=== PATIENT | male | born 1970 | race Caucasian/White ===

== ENCOUNTER 2017-10-28 18:08 | Observation (INO) | payer OTHER ==
--- NOTE | 2017-10-28 18:16 | CPEKG ---
Heart Rate: 91 RR Interval: 659 P-R Interval: 144 QRSD Interval: 104 QT Interval: 352 QTC Interval: 434 P Boyce: 53 QRS Boyce: 74 T Wave Boyce: 113 EKG Severity - ABNORMAL ECG - EKG Impression: SINUS RHYTHM EKG Impression: PROBABLE INFERIOR INFARCT, AGE INDETERMINATE EKG Impression: LATERAL LEADS ARE ALSO INVOLVED Electronically Signed By: Starr Davis 29-Oct-2017 22:43:22
--- NOTE | 2017-10-28 18:21 | EDPHY ---
HPI/HX/ROS/PE/MDM Narrative: CHIEF COMPLAINT: Chest pain HISTORY OF PRESENT ILLNESS: The patient is a 46 y/o male with a history of a pacemaker and CABG x 2 arriving via EMS, complaining of midsternal chest pain, 45 minutes ago. He has had a total of 14 SD's, which resulted in a CABG and pacemaker/defibrillator. After the CABG he had CHF. He had a cardiac catheterization in 05/2017. 9 days after the catheterization he was seen in the ED at [facility] after developing chest pain, but sent home. Today he did not feel well, when his chest pain began he felt nauseous, lightheaded, and began to have sweats. He drove to a [employer] as he did not have any Nitroglycerin, but the pain was to great so he called 911. While en route to the ED, EMS gave him 324mg PO Aspirin and 1 nitroglycerin. After receiving the nitroglycerin he became dizzy. The pain today was an 8/10 at its worse and is currently a 5/10. The pain feels more cardiac as opposed to GERD. Takes 325mg Aspirin daily, which he took today. Denies taking Nitroglycerin for 3-4 months. Denies chest pain with inspiration. Followed by Dr. Garcia, plate slitter and inspector, at [facility]. No fever, chills, shortness of breath, palpitations, vomiting, diarrhea, urinary complaints, headache. REVIEW OF SYSTEMS: Aside from elements discussed in the HPI, a comprehensive 10-point review of systems was reviewed and is negative. PAST MEDICAL HISTORY: SD x 14, CABG x 2, pacemaker/AICD, hypercholesteremia, hypertension, epilepsy, GERD SOCIAL HISTORY: Works for [employer], lives in [place] VITAL SIGNS: Reviewed by me GENERAL: Well-developed, well-nourished, resting comfortably in no respiratory distress. HEENT: Atraumatic. Eyes: No icterus, no injection. Mouth: moist mucous membranes. No erythema or lesions. Neck: supple with no adenopathy. LUNGS: Clear to auscultation bilaterally, no wheezes, rhonchi or rales. CARDIAC: Regular rate and rhythm, no rubs, murmurs or gallops. ABDOMEN: Soft, nontender, nondistended, bowel sounds normal. BACK: No CVA tenderness. EXTREMITIES: No trauma. No edema. Range of motion is normal throughout. NEURO: Alert and oriented, grossly nonfocal. SKIN: Warm and dry, no rash. PSYCHIATRIC: Normal mentation, no agitation. Portions of this note were transcribed by a medical claims examiner. I personally performed a history, physical exam, medical decision making, and confirmed accuracy of information the transcribed note. ED Course: The patient is a 46 y/o male with a history of a CABG x 2 and pacemaker arriving via EMS, presenting with midsternal chest pain, onset 1 hour ago. Was administered 324mg PO Aspirin and 1 nitroglycerin while en route to the ED. His physical exam is normal, chest pain is currently a 5/10. Labs, EKG, and chest x- ray ordered. 4mg IV Morphine administered. 1813: 12-LEAD EKG: Please see the full report in [employer] [facility]. My interpretation: Sinus rhythm with a rate of 91, old inferior infarct, hint of lateral ST depression. 1852: Chest x-ray was obtained. I viewed the images myself on the PACS system. Radiologist reading pending. 1905: Spoke with Dr. Coy, radiologist, regarding this patient's x-ray. There are no acute findings. 1920: Reassessed patient and discussed imaging and laboratory findings. He is still having a mild amount of chest pain. 4mg IV Morphine and Nitroglycerin paste administered. Patient will need to be admitted to the PCU for observation ; he is comfortable with this plan. 0: Consulted with hospitalist service, Dr. Bhakta accepts admission of this patient. 1948: Consulted with Dr. Bee, plate slitter and inspector, regarding this patient. He agrees to follow this patient during his admission. MDM: diff dx for patients chest pain considered including but not limited to ACS, acute SD, gastroentestinal causes, pleurisy, GERD, gallstone disease, musculoskeletal disease. - Data Points Imaging Results: Imaging Impressions Chest X-Ray 10/28/17 18:26 Impression: 1. No acute thoracic abnormality. 2. Mild anterior wedging of multiple lower thoracic vertebrae. Imaging: Discussed imaging studies w/ inbound call center representative Radiologist, I viewed and interpreted images myself Laboratory Results: Laboratory Results 10/28/17 18:15 10/28/17 18:15 10/28/17 10/28/17 18:15 18:15 WBC 10.61 10^3/uL H 10^3/uL (3.80-9.50) RBC 5.73 10^6/uL 10^6/uL (4.40-6.38) Hgb 17.2 g/dL g/dL (13.7-17.5) Hct 49.3 % % (40.0-51.0) MCV 86.0 fL fL (81.5-99.8) MCH 30.0 pg pg (27.9-34.1) MCHC 34.9 g/dL g/dL (32.4-36.7) RDW 13.8 % % (11.5-15.2) Plt Count 250 10^3/uL 10^3/uL (150-400) MPV 9.6 fL fL (8.7-11.7) Neut % (Auto) 67.0 % % (39.3-74.2) Lymph % (Auto) 22.6 % % (15.0-45.0) Woods % (Auto) 8.3 % % (4.5-13.0) Eos % (Auto) 1.1 % % (0.6-7.6) Baso % (Auto) 0.6 % % (0.3-1.7) Nucleat RBC Rel Count 0.0 % % (0.0-0.2) Absolute Neuts (auto) 7.11 10^3/uL H 10^3/uL (1.70-6.50) Absolute Lymphs (auto) 2.40 10^3/uL 10^3/uL (1.00-3.00) Absolute Monos (auto) 0.88 10^3/uL H 10^3/uL (0.30-0.80) Absolute Eos (auto) 0.12 10^3/uL 10^3/uL (0.03-0.40) Absolute Basos (auto) 0.06 10^3/uL 10^3/uL (0.02-0.10) Absolute Nucleated RBC 0.00 10^3/uL 10^3/uL (0-0.01) Immature Gran % 0.4 % % (0.0-1.1) Immature Gran # 0.04 10^3/uL 10^3/uL (0.00-0.10) Sodium 139 mEq/L mEq/L (135-145) Potassium 4.5 mEq/L mEq/L (3.5-5.2) Chloride 106 mEq/L mEq/L (97-110) Carbon Dioxide 23 mEq/l mEq/l (22-31) Anion Gap 10 mEq/L mEq/L (8-16) BUN 15 mg/dL mg/dL (7-23) Creatinine 1.2 mg/dL mg/dL (0.7-1.3) Estimated GFR > 60 Glucose 107 mg/dL H mg/dL (70-100) Calcium 9.2 mg/dL mg/dL (8.5-10.4) Troponin I < 0.012 ng/mL ng/mL (0.000-0.034) Lipase 149 IU/L IU/L (23-300) Medications Given: Discontinued Medications Morphine Sulfate (Morphine) 4 mg IVP EDNOW ONE Stop: 10/28/17 18:25 Last Admin: 10/28/17 18:34 Dose: 4 mg Morphine Sulfate (Morphine) 4 mg IVP EDNOW ONE Stop: 10/28/17 19:33 Last Admin: 10/28/17 19:39 Dose: 4 mg Nitroglycerin (Nitro-Bid 2%) 1 inch TP EDNOW ONE Stop: 10/28/17 19:27 Last Admin: 10/28/17 19:39 Dose: 1 inch General Time Seen by Provider: 10/28/17 18:10 Initial Vital Signs: Initial Vital Signs Temperature (C) 36.8 C 10/28/17 18:21 Heart Rate 89 10/28/17 18:21 Respiratory Rate 17 10/28/17 18:21 Blood Pressure 105/68 10/28/17 18:21 O2 Sat (%) 96 10/28/17 18:21 O2 Delivery Mode Nasal Cannula O2 (L/minute) 2 Allergies/Adverse Reactions: No Known Allergies Allergy (Unverified 10/28/17 18:25) Home Medications: Medication Instructions Recorded Aspirin EC [Aspirin EC 81 mg (*)] 81 mg PO DAILY 10/28/17 Atorvastatin Calcium [Lipitor 80 80 mg PO HS 10/28/17 mg] Isosorbide Mononitrate [Isosorbide 60 mg PO DAILY 10/28/17 Mononitrate ER] LEVETIRACETAM [Keppra 750 mg] 750 mg PO BID 10/28/17 Lisinopril [Zestril 2.5 mg (*)] 2.5 mg PO DAILY 10/28/17 Metoprolol Succinate Xr [Toprol Xl 50 mg PO DAILY 10/28/17 50 mg (*)] Multivitamins [Multivitamin (*)] 1 each PO DAILY 10/28/17 Nicotine [Nicoderm Cq 21 mg (*)] 21 mg TD DAILY 10/28/17 Ranolazine [Ranexa] 1,000 mg PO BID 10/28/17 Rivaroxaban [Xarelto] 20 mg PO DAILY@18 10/28/17 Pantoprazole Sodium [Protonix 40mg 40 mg PO BID #60 tab 10/30/17 (*)] Departure - Departure Disposition: [facility] In[facility] Acute Clinical Impression: Mid sternal chest pain Chest pain Qualifiers: Chest pain type: other chest pain Qualified Code(s): R07.89 - Other chest pain Condition: Fair Report Scribed for: Starr Davis Report Scribed by: Jessenia Swift Date of Report: 10/28/17 Time of Report: 18:21
[2017-10-28 18:32] LABS: PLATELET COUNT 250 10^3/uL (150-400)
[2017-10-28] MEDS ORDERED: NITROGLYCERIN 2% 1 GM PACKET TP ONE (19:26)
[2017-10-28] MEDS ORDERED: ONDANSETRON 4 MG/2 ML VIAL IVP PRN (19:30)
[2017-10-28] MEDS ORDERED: ONDANSETRON DISINTEGRATING 4 MG TAB PO PRN (19:30)
--- NOTE | 2017-10-28 21:20 | GHP ---
[f rep st] HISTORY AND PHYSICAL DATE OF ADMISSION: 10/28/2017 CHIEF COMPLAINT: Chest pain. HISTORY OF PRESENT ILLNESS: A 46-year-old male with a history of coronary artery disease, status pos t a 2-vessel CABG approximately 7 years ago, who presents with sudden onset of substernal burning jarda st pain that began approximately an hour prior to his arrival to the emergency department. Patient r eports being in his normal state of health in the a week or two preceding his presentation, does note a recent knee injury and some decreased activity in the 48 hours prior to presentation. 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 Patient has had extensive experience with ref lux and describes that this sensation substernally is not similar to reflux he has had in the past, w as associated with shortness of breath with diaphoresis. Patient pressed the SOS button on his car a nd EMS came to his location. He was treated with nitroglycerin in the emergency transport vehicle, w hich made him exceedingly dizzy and nauseated. Upon arrival to the ED, he reports that the pain has improved. His dizziness is improving, as well as his shortness of breath. Patient denies any activi ty limiting chest pain or shortness of breath preceding this. Denies dyspnea on exertion, orthopnea, or PND. Denies lower extremity edema. Reports he has had an episode of pericarditis since his CABG surgery. His last evaluation of his coronary anatomy was in May or June 2017. He underwen t cardiac catheterization, which showed stable non-intervenable multivessel disease. PAST MEDICAL HISTORY: 1. Coronary artery disease, status post CABG 2-vessel approximately 7 years ago. 2. History of ventricular tachycardia, now with permanent pacemaker AICD. 3. Hyperlipidemia. 4. Hypertension. 5. History of epilepsy. 6. Reflux. 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 Works for [employer]. Smoked for 30 years. Quit for 7 and started smoking again recently. Drinks occasional alcohol. Den ies illicit drugs or marijuana. FAMILY HISTORY: Negative for heart disease. REVIEW OF SYSTEMS: A 10-point review of systems is negative with the exception of that reported in t he HPI. PHYSICAL EXAMINATION: VITAL SIGNS: Blood pressure 130/87, heart rate 86, respiratory rate 12, satur ating 96% on room air, 36.8. GENERAL: Pleasant 46-year-old male with a history of coronary disease, presenting with complaints of chest pain. HEENT: Moist mucous membranes. Eye exam is negative for any icterus. CARDIAC: Regular rate and rhythm. A systolic murmur is appreciated. PULMONARY: Vini ar to auscultation bilaterally. GASTROINTESTINAL: Positive bowel sounds. Abdomen soft and nontende r. MUSCULOSKELETAL: Negative for any lower extremity edema. SKIN: Negative for any rashes. NEURO LOGIC: Alert and oriented x3. PSYCHIATRIC: He is pleasant and cooperative on interview and examina tion. DATA: White count 10.6, hematocrit 49.3, platelets 250. Troponin less than 0.012. Sodium 139, crea tinine 1.2. EKG, which I personally reviewed and interpreted, shows a sinus rhythm, normal axis, nor mal intervals, with Q-waves in leads II, III, aVF, with nonspecific ST-T flattening in the lateral pr ecordial leads. Chest x-ray, which I personally reviewed and interpreted, shows no acute infiltrates or edema. ASSESSMENT AND PLAN: This is a 46-year-old male with extensive coronary artery disease, presenting w ith chest pain. 1. Acute chest pain. Patient's troponin is negative with inferior Q-waves and nonspecific lateral c hanges on EKG. Agree with treating with either nitroglycerin paste or nitroglycerin drip to get the patient pain-free. Will cycle serial troponins, EKGs. Have recommended Cardiology be consulted this evening as the patient is certainly high risk and the likely study that he will require is cardiac c atheterization. Will make the patient cardiac diet and n.p.o. after midnight and await additional re commendations from Cardiology. Patient is currently anticoagulated on Xarelto, as well as aspirin an d is chronically using long-acting nitrates as well as Ranexa. Will continue these medications once reconciled. 2. Coronary artery disease, extensive history with recent cardiac catheterization. We should attemp t to get those records. Will continue patient's aspirin, WYATT inhibitor, beta-prema, statin, and aw ait additional Cardiology recommendations. Again, making the patient n.p.o. after midnight in antici pation of possible cardiac catheterization. 3. Hypertension. Patient's blood pressures apparently were quite elevated in transport. They have normalized after his workup in the emergency department. Will continue his home medications. 4. Hyperlipidemia. Will continue his statin therapy. 5. Epilepsy. Will continue his Keppra dosing. 6. Prophylaxis. He is on Xarelto. 7. Diet. Cardiac, then n.p.o. DISPOSITION: I expect less than 2 midnights if the patient rules out overnight and has negative card iac imaging. I have discussed the case with the emergency room physician. They will consult Cardiol taty, and the patient will be admitted to the PCU for monitoring and care. /[id number]/MODL
[2017-10-29] MEDS: ATORVASTATIN CALCIUM 40 MG TAB PO SCH ×2 (00:13→20:16)
[2017-10-29] MEDS: RANOLAZINE 500 MG TAB.ER PO SCH ×3 (00:13→20:16)
[2017-10-29] MEDS: levETIRAcetam 250 MG TAB PO SCH ×3 (00:14→20:16)
[2017-10-29] MEDS: ACETAMN/DIPHENHYDRAMINE 500/25MG TAB PO PRN ×2 (00:17→22:28)
[2017-10-29] MEDS ORDERED: NITROGLYCERIN/DEXTROSE 250 ML IV SCH (01:00)
[2017-10-29] MEDS: ASPIRIN EC 81 MG TAB PO SCH (10:19)
[2017-10-29] MEDS: LISINOPRIL 2.5 MG TAB PO SCH (10:19)
[2017-10-29] MEDS: NICOTINE 21 MG/24 HR PATCH TD SCH (10:19)
[2017-10-29] MEDS: METOPROLOL SUCCINATE XR 50 MG TAB PO SCH (10:19)
[2017-10-29] MEDS: ACETAMINOPHEN 325 MG TAB PO PRN ×2 (10:19→22:28)
[2017-10-29] MEDS: MULTIVITAMINS 1 EACH TAB PO SCH (10:19)
[2017-10-29] MEDS: ISOSORBIDE MONONITRATE 30 MG TAB.SR PO SCH (10:19)
--- NOTE | 2017-10-29 13:32 | GCON ---
[f rep st] CONSULTATION DATE OF CONSULTATION: 10/29/2017 CHIEF COMPLAINT: We have been asked by Dr. Bhakta to evaluate the patient with a chief complaint of chest pain. HISTORY OF PRESENT ILLNESS: The patient is a 46-year-old gentleman, with known coronary artery disea se, who presents with a chief complaint of chest pain. Patient was in his usual state of health unti l the day of admission, when he began to experience chest pain. The chest pain is described as a bur ashlee sensation in the center of his chest without radiation. The chest pain was associated with shor tness of breath but not nausea, vomiting, or diaphoresis. When the chest discomfort did not resolve, patient became quite concerned and called EMS. When EMS arrived, they gave him nitroglycerin. This resulted in him feeling lightheaded, dizzy, and nauseous. His symptoms gradually resolved and, by t he time he arrived in the emergency department, he was mostly symptom free. We were consulted to magdaleno wren in the further management of this patient. Patient does have a previous history of coronary artery disease and is status post bypass grafting surgery x2 approximately 7 years previously. His previou s anginal symptoms were described as a pain in the center of the chest, associated with bilateral arm heaviness. His current symptomatology is not like his previous anginal-type symptoms. No history o f orthopnea or PND. Patient does report a recent knee injury at work but has otherwise been well. PAST MEDICAL HISTORY: 1. Coronary artery disease. 2. History of ventricular tachycardia status post ICD. 3. Hyperlipidemia. 4. Hypertension. 5. Gastroesophageal reflux disease. 6. History of epilepsy. MEDICATIONS: Please see medicine reconciliation form. 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 He does not smoke. He denies problems with a lcohol. FAMILY HISTORY: Negative for early onset of coronary artery disease. REVIEW OF SYSTEMS: Ten-point review of systems is negative, except as noted in HPI. PHYSICAL EXAMINATION: GENERAL: Patient is resting comfortably in bed at this time. He does not naz ear to be in acute distress. VITALS: Temperature is afebrile. Pulse is 83. Blood pressure 100/51. Respiratory rate 15. SaO2 is 92% on room air. HEENT: Normocephalic, atraumatic. Extraocular mus cles intact. NECK: No JVD. No bruits. LUNGS: Clear to auscultation bilaterally. CARDIOVASCULAR: Regular rate and rhythm. S1, S2. Grade 2/6 holosystolic murmur is noted at the left sternal borde r. ABDOMEN: Obese. Nontender. Normoactive bowel sounds. No hepatosplenomegaly. No evidence of a ortic aneurysm. EXTREMITIES: No clubbing, cyanosis, or edema. SKIN: Patient has multiple tattoos. NEURO: Patient is awake, alert, and oriented x3. LABORATORY AND X-RAY DATA: White blood cell count is 10.61, hemoglobin 17.2, hematocrit 49.3, platel et count 250. Sodium 139, potassium 4.5, chloride 106, CO2 of 23, BUN 15, creatinine 1.2. Troponin within normal limits x2. EKG demonstrates sinus rhythm, normal axis, normal intervals, inferior Q-wa ves, nonspecific ST and T-wave changes. Chest x-ray: No acute cardiopulmonary disease appreciated. ASSESSMENT AND PLAN: The patient is a 46-year-old gentleman with: 1. Chest pain. Patient presents with an episode of chest pain, described as a burning sensation in the center of his chest, without radiation. His current chest pain is not like his previous anginal- type symptoms. His EKG demonstrates no acute ST or T-wave changes. His troponins are within normal limits. Reviewed options for risk stratification, including cardiac catheterization and stress testi ng. Will arrange to have stress testing performed. 2. Hypertension. Patient has a history of hypertension. His blood pressure is well controlled on m etoprolol and lisinopril. Will plan on continuing current therapy. 3. Hyperlipidemia. Patient has a history of hyperlipidemia. He is on atorvastatin 80 mg daily. Wi ll obtain an FLP and LFT to evaluate therapy. 4. Coronary artery disease. Patient has a history of coronary artery disease and is status post 2-v essel bypass grafting surgery approximately 7 years previously. His last cardiovascular evaluation w as in May or June of 2017 at [facility]. Will try to obtain his last angiogram for further evaluation. Will plan on continuing medical management with aspirin, metoprolol, lisinopril , atorvastatin, and Ranexa. 5. Anticoagulated. Patient is currently anticoagulated on Xarelto. He reports having a thrombus id entified on transesophageal echocardiogram. It is not clear if this is related to an LV thrombus or potentially left atrial thrombus. Will try to obtain records from [facility] regarding this . /[id number]/MODL
[2017-10-29] MEDS ORDERED: REGADENOSON 0.4 MG/5 ML SYR IVP ONE (13:43)
--- NOTE | 2017-10-29 14:28 | ASMTCMCOM ---
CM Note CM Note Notes: 10/29/2017 Case Management Note Discussed pt during rounds. Pt admitted for R/O ACS, hx of CABG, hx of VFIB and chest pain. There are no case management d/c needs identified d/t pt age, employment status and activity levels prior to admission. There are no PT or OT evals ordered at this time. Case Management d/c poc: anticipating independent with follow up as directed. Case Management available if needs change. Date Signed: 10/29/2017 02:27 PM Electronically Signed By:Kristen Pate RN
[2017-10-29] MEDS ORDERED: RIVAROXABAN 20 MG TAB PO SCH (18:00)
--- NOTE | 2017-10-29 18:29 | HOSPPROG ---
Hospitalist Progress Note Assessment/Plan: DIAGNOSES: Chest pain, spoke at rest, in patient with known coronary disease status post bypass surgery Hyperlipidemia Recent coronary angiography done elsewhere, for which we have been sore unable to obtain report, still working on that History of sustained ventricular tachycardia and AICD placement Reported history of intracardiac thrombus on echocardiogram and taking rivaroxaban from that, again we have no records available at this time trying to get reports to review as the patient is unable to clarify details Hyper tension Seizure disorder on Keppra As patient will require ongoing cardiac monitoring here and possibly other study will need to change to inpatient status PLANS: -at this time I reviewed the patient's scenario again in detail with Dr. Novoa. We do not have confirmation of any definitive acute coronary syndrome. However the anatomy from his recent coronary angiography is unknown to us, and the exact reason that he is on anticoagulant whether actually had a ventricular or atrial thrombus or otherwise is uncertain. The patient does not recall any detail of atrial fibrillation. -Dr. 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 Novoa Objective: Vital Signs Temp Pulse Resp BP Pulse Ox 36.4 C 69 14 104/65 94 10/29/17 15:26 10/29/17 15:26 10/29/17 15:26 10/29/17 15:26 10/29/17 15:26 10/28/17 10/29/17 10/30/17 06:59 06:59 06:59 Intake Total 1012 560 Balance 1012 560 ICD10 Worksheet Patient Problems: Problems Problem Status Onset Chest pain Acute Mid sternal chest pain Acute
--- NOTE | 2017-10-29 21:54 | CPR ---
[f rep st] NONINVASIVE CARDIAC PROCEDURE REPORT PROCEDURE PERFORMED: Lexiscan injection of Lexiscan myocardial perfusion imaging study. SUPERVISING TONG HOOKER: Dr. Kye Novoa. INDICATION FOR PROCEDURE: Chest heaviness, known CAD, unable to run on treadmill. INITIAL EKG PRE: After obtaining informed consent, ensuring patient's n.p.o. status of caffeine for greater than 12 hours, the patient was placed onto electrocardiogram. Initial EKG showing sinus rhyt hm, borderline Q-waves in inferior leads, nonspecific T-wave abnormalities in anterolateral leads. Margarita lyon denies any chest pain, shortness of breath, or symptoms suggesting of ischemia. Initial blood pressure was 111/66, saturation 89% on room air. INJECTION: Patient was given Lexiscan slow IV push followed by nuclear isotope. Within 1 minute of injection, patient reporting some mild midsternal chest pressure. No significant EKG changes. Blood pressure did drop down to 86/52. Saturation 91%. By 3 minutes, the patient was given caffeinated b everage to help reverse the affects of Lexiscan and within 5 minutes blood pressure returned back to normal at 101/59. The patient reports symptoms subsided. Again, no EKG changes noted. Currently, margarita lyon's vital signs are stable. He is asymptomatic of any symptoms suggesting of ischemia. He is b varghese taken to Nuclear Medicine for post stress MPI imaging. IMPRESSION: A 46-year-old male with significant history of coronary artery disease with previous cor onary artery bypass grafting. Admitted for chest pressure. Unable to walk on treadmill. Lexiscan i njection done with no significant electrocardiographic changes, but within 1-2 minutes reporting mild midsternal chest pressure, which subsided with caffeinated beverage within 5 minutes. Vital signs w ere stable. Note, the patient is currently asymptomatic and is being taken to Nuclear Medicine for p ost-stress imaging. /[id number]/MODL
[2017-10-30 07:28] VITALS: BP 142/78; PULSE 74; RESP 15; TEMP 97.4; O2SAT 91
[2017-10-30] MEDS: ISOSORBIDE MONONITRATE 30 MG TAB.SR PO SCH (08:01)
[2017-10-30] MEDS: levETIRAcetam 250 MG TAB PO SCH (08:01)
[2017-10-30] MEDS: ASPIRIN EC 81 MG TAB PO SCH (08:02)
[2017-10-30] MEDS: LISINOPRIL 2.5 MG TAB PO SCH (08:02)
[2017-10-30] MEDS: MULTIVITAMINS 1 EACH TAB PO SCH (08:02)
[2017-10-30] MEDS: RANOLAZINE 500 MG TAB.ER PO SCH (08:02)
[2017-10-30] MEDS: METOPROLOL SUCCINATE XR 50 MG TAB PO SCH (08:02)
[2017-10-30] MEDS: NICOTINE 21 MG/24 HR PATCH TD SCH (08:03)
--- NOTE | 2017-10-30 13:39 | PDDCSUM ---
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 Kye Novoa PROCEDURES: Lexiscan stress test HOSPITAL COURSE SUMMARY: This patient who is 46 years old and had bypass surgery elsewhere at age 39 comes into our hospital now with an episode of chest pain. This is actually a substernal burning sensation that had been occurring for a couple of weeks as he comes in. It was progressive over that time. He had had some prior reflux related symptoms that felt different to him and he was concerned that this was not reflux. However this symptom clearly feels very different than his previous angina symptoms. The patient rule out for myocardial infarction, had no heart failure or arrhythmia, had good vital signs. There are no other acute findings to suggest other illness decides his burning chest discomfort. It is felt that is burning chest discomfort was most likely reflux low related and he was given a reflux diet, and started on Protonix as he goes home twice daily for 2 weeks. He is recommended to get GI consultation if his burning symptoms not resolve with those measures. In terms of his heart the patient did undergo a myocardial perfusion imaging study with stress and this showed areas in for infarction that were more than we had anticipated based on his initial history. It took quite some time we were finally able to get records from his most recent angiogram in May 2017 as well as his initial surgery. He has had somewhere before his last angiogram new complete occlusion of his ewiiaapaayp right coronary with a known already occluded right coronary graft this probably accounts for a lot of the infarction seen on his perfusion imaging here at this time. There was also an LAD and he has some other areas of infarction related to that and the LAD and LUA graft was open in May. At this point he is not felt to have any active ischemia, new areas of infarction, new heart failure, or no arrhythmia. He does have AICD in place but this has not discharged. Is recommended that he continue with his ongoing aggressive risk management strategies but he has not made any appointments with his cardiac care unit nurse. We strongly recommend he call today to make follow-up appointment with his cardiac care unit nurse. He is taking nicotine patches and is important that he does not start smoking but because of his reflux issues as above I did recommend he consider when he might start decreasing the dose if his patch PENDING TEST RESULTS: None MEDICATION CHANGES: Addition of Protonix 40 mg twice daily for at least 2 weeks FOLLOW-UP PLAN: With primary care doctor in 1-2 weeks consider GI consultation of reflux symptoms not better He will make an appoint with his cardiac care unit nurse as well I did review the patient's condition and discharge care plan in detail with Dr. Kye Novoa today Greater than 35 minutes bedside and care coordination time today
--- NOTE | 2017-10-30 16:48 | ASDISCHSUM ---
Discharge Information Plan Status:Home with No Needs Medically Cleared to Leave:10/29/2017 Discharge Date:10/30/2017 10:45 AM CM D/C Disposition:Home, Routine, Self-Care ADT D/C Disposition:Home, Routine, Self-Care Projected Discharge Date:10/30/2017 12:00 AM Transportation at D/C: Discharge Delay Reason: Follow-Up Date:10/30/2017 12:00 AM Discharge Slot: Final Diagnosis: Placement Information Patient Contact Information Contact Name:SHERIDANHarry Relationship: Address: Home Phone: Work Phone: City: Alternate Phone: State/[employer] Code: Email: Financial Information Financial Class:HMO and PPO Plans Primary Plan Desc:[facility] CU PLAN Primary Plan Number:[id number] Secondary Plan Desc: Secondary Plan Number: Assessment Information [facility] CM Progress Note CM Note CM Note Notes: 10/29/2017 Case Management Note Discussed pt during rounds. Pt admitted for R/O ACS, hx of CABG, hx of VFIB and chest pain. There are no case management d/c needs identified d/t pt age, employment status and activity levels prior to admission. There are no PT or OT evals ordered at this time. Case Management d/c poc: anticipating independent with follow up as directed. Case Management available if needs change. Date Signed: 10/29/2017 02:27 PM Electronically Signed By:Kristen Pate RN Intervention Information
== END 2017-10-30 10:45 | disposition home or self-care (01) ==
LOC: F2W 23:57
PROVIDERS: ADMIT Hospitalist; ATTEND Hospitalist
PROC: 4A12XM4 Monitoring of Cardiac Stress, External Approach (ICD-10-PCS; principal; 2017-10-28)
DX: R07.9 Chest pain, unspecified (principal); E78.00 Pure hypercholesterolemia, unspecified; I10 Essential (primary) hypertension; G40.909 Epilepsy, unspecified, not intractable, without status epilepticus; K21.9 Gastro-esophageal reflux disease without esophagitis; Z95.0 Presence of cardiac pacemaker; Z79.01 Long term (current) use of anticoagulants
CPT/HCPCS: 71046; 78452; 93005; 93017; A9500; G0378; J2785

== ENCOUNTER 2018-06-08 15:36 | Inpatient (IN) | payer MEDICAID, OTHER ==
[2018-06-08] MEDS ORDERED: NS 1,000 ML IV ONE (15:46)
[2018-06-08] MEDS ORDERED: fentaNYL 100 MCG/2 ML INJ IVP ONE (15:46)
--- NOTE | 2018-06-08 15:54 | EDPHY ---
H & P Time Seen by Provider: 06/08/18 15:47 HPI/ROS: HPI Chest pain. 47-year-old male by ambulance emergently. History of coronary artery disease. Multiple MIs, stents and bypass surgery. Patient also has an AICD. He reports onset of chest pain described as deep substernal squeezing sensation and lightheadedness 1 hr prior to arrival while driving. EMS reports no indication of STEMI on 12 lead. Patient had a syncopal episode versus seizure on his way to the emergency department. He has a known history of epilepsy. He takes Keppra. He is compliant. EMS report brief loss of consciousness but no arrhythmia on his monitor. Patient also did not have a postictal phase. Patient reports he did take 3 nitroglycerin tablets prior to arrival sublingual. Left antecubital 18 gauge established by EMS. Patient received 324 mg of chewed aspirin per EMS. ROS: Constitutional: No fever, no chills. No weakness. Eyes: No discharge. No changes in vision. ENT: No sore throat. No nasal congestion or rhinorrhea. Respiratory: No cough. No shortness of breath. Cardiac: As above, no palpitations. Gastrointestinal: No abdominal pain, no vomiting, no diarrhea. Genitourinary: No hematuria. No dysuria or increased frequency with urination. Musculoskeletal: No back pain. No neck pain. No myalgias or arthralgias. Skin: No rashes. Neurological: No headache. No focal weakness or altered sensation. Past medical history: DC x4, CABG, pacer/AICD, on Eliquis, hyperlipidemia, hypertension, epilepsy. 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 Social history: Nonsmoker. Here by himself. Denies alcohol. Physical Exam: General Appearance: Alert, no distress. This patient is responding to questions appropriately and in full sentences. This patient appears well- hydrated and well-nourished. Eyes: Pupils equal and round no pallor or injection. No lid edema, erythema or injection. ENT, Mouth: Mucous membranes are moist. The pharyngeal tissues are unremarkable. No edema or swelling. No asymmetry suggestive of abscess. No erythema or exudates. No tongue lacerations or abrasions. Respiratory: There are no retractions, lungs are clear to auscultation with good air movement bilaterally. Cardiovascular: Regular rate and rhythm. No murmur appreciate. Gastrointestinal: Abdomen is soft and nontender, no masses, bowel sounds normal. No focal tenderness at McBurney's point. No Decker sign. Neurological: Motor sensory function is grossly intact. Cranial nerves are normal. Gait is normal. Skin: Warm and dry, no rashes. Musculoskeletal: Neck is supple and nontender. Extremities are symmetrical. All joints range without pain or impingement. Psychiatric: No agitation. No depression. Database: EKG: EKG time is 3:40 p.m.; EKG shows a narrow complex normal sinus rhythm with a ventricular rate of 68. Nonspecific T-wave abnormalities noted in the lateral leads which consists of T-wave flattening. The MN, QRS, QT intervals are within normal limits. There are no ST-T wave changes indicative of ischemic or injury pattern. No evidence of right heart strain. No significant changes from prior each EKG September of 2017. Interpreted by me. Imaging: Chest x-ray PA and lateral: Cardiac mediastinal silhouette is unremarkable. Pacemaker and leads appear intact. No pneumothorax. No acute cardiopulmonary disease process. Interpreted by me. Procedures: Emergency department course: Triage vital signs reviewed. Patient placed on a monitoring analyst. Patient still complains of some substernal chest discomfort. He will be given IV fentanyl at 25 mcg doses as needed for pain. He did have a drop in his blood pressure from the 120s systolic to the low 90s after self administered nitroglycerin. 4:20 p.m., patient re-evaluated. Comfortable at this time. No chest pain. Vital signs reviewed and are normal. electronic device monitor shows a narrow complex sinus rhythm with ventricular rate of 62. Blood pressure 118/77. Pulse oximetry 95%. I discussed the results of his diagnostic workup in the emergency department. I discussed plan for admission for observation and further testing overnight. He consents. Hospitalist paged. 4:25 p.m., spoke with on-call hospitalist. Case discussed in detail with Dr. Simons. Patient accepted for admission to the hospitalist service telemetry observation. Cardiology to consult. Patient admitted in stable and improved condition. Differential Diagnosis: The differential diagnosis on this patient includes but is not limited to acute coronary syndrome, history of coronary artery disease. STEMI, PE, myocarditis, pericarditis, aortic dissection, pneumothorax unlikely. This represents a partial list of diagnoses considered. These considerations are based on history , physical exam, past history, reassessment and diagnostic testing. Smoking Status: Former smoker Constitutional: Initial Vital Signs Temperature (C) 36.8 C 06/08/18 15:39 Heart Rate 69 06/08/18 15:39 Respiratory Rate 18 06/08/18 15:39 Blood Pressure 136/79 H 06/08/18 15:39 O2 Sat (%) 92 06/08/18 15:39 O2 Delivery Mode Room Air Allergies/Adverse Reactions: No Known Allergies Allergy (Unverified 10/28/17 18:25) Home Medications: Medication Instructions Recorded Aspirin EC [Aspirin EC 81 mg (*)] 81 mg PO DAILY 10/28/17 Atorvastatin Calcium [Lipitor 80 80 mg PO HS 10/28/17 mg] Isosorbide Mononitrate [Isosorbide 60 mg PO DAILY 10/28/17 Mononitrate ER] LEVETIRACETAM [Keppra 750 mg] 750 mg PO BID 10/28/17 Lisinopril [Zestril 2.5 mg (*)] 2.5 mg PO DAILY 10/28/17 Metoprolol Succinate Xr [Toprol Xl 50 mg PO DAILY 10/28/17 50 mg (*)] Multivitamins [Multivitamin (*)] 1 each PO DAILY 10/28/17 Nicotine [Nicoderm Cq 21 mg (*)] 21 mg TD DAILY 10/28/17 Ranolazine [Ranexa] 1,000 mg PO BID 10/28/17 Rivaroxaban [Xarelto] 20 mg PO DAILY@18 10/28/17 Pantoprazole Sodium [Protonix 40mg 40 mg PO BID #60 tab 10/30/17 (*)] Medical Decision Making - Data Points Laboratory Results: Laboratory Results 06/08/18 15:49 06/08/18 15:49 06/08/18 06/08/18 06/08/18 15:49 15:49 15:49 WBC 10.05 10^3/uL H 10^3/uL (3.80-9.50) RBC 5.75 10^6/uL 10^6/uL (4.40-6.38) Hgb 16.9 g/dL g/dL (13.7-17.5) Hct 50.4 % % (40.0-51.0) MCV 87.7 fL fL (81.5-99.8) MCH 29.4 pg pg (27.9-34.1) MCHC 33.5 g/dL g/dL (32.4-36.7) RDW 14.0 % % (11.5-15.2) Plt Count 276 10^3/uL 10^3/uL (150-400) MPV 9.9 fL fL (8.7-11.7) Neut % (Auto) 73.1 % % (39.3-74.2) Lymph % (Auto) 18.0 % % (15.0-45.0) Mower % (Auto) 6.8 % % (4.5-13.0) Eos % (Auto) 1.3 % % (0.6-7.6) Baso % (Auto) 0.4 % % (0.3-1.7) Nucleat RBC Rel Count 0.0 % % (0.0-0.2) Absolute Neuts (auto) 7.35 10^3/uL H 10^3/uL (1.70-6.50) Absolute Lymphs (auto) 1.81 10^3/uL 10^3/uL (1.00-3.00) Absolute Monos (auto) 0.68 10^3/uL 10^3/uL (0.30-0.80) Absolute Eos (auto) 0.13 10^3/uL 10^3/uL (0.03-0.40) Absolute Basos (auto) 0.04 10^3/uL 10^3/uL (0.02-0.10) Absolute Nucleated RBC 0.00 10^3/uL 10^3/uL (0-0.01) Immature Gran % 0.4 % % (0.0-1.1) Immature Gran # 0.04 10^3/uL 10^3/uL (0.00-0.10) PT 17.0 SEC H SEC (12.0-15.0) INR 1.37 H (0.83-1.16) APTT 33.5 SEC SEC (23.0-38.0) Sodium 141 mEq/L mEq/L (135-145) Potassium 4.4 mEq/L mEq/L (3.3-5.0) Chloride 103 mEq/L mEq/L (97-110) Carbon Dioxide 30 mEq/l mEq/l (22-31) Anion Gap 8 mEq/L mEq/L (8-16) BUN 20 mg/dL mg/dL (7-23) Creatinine 1.5 mg/dL H mg/dL (0.7-1.3) Estimated GFR 50 Glucose 117 mg/dL H mg/dL (70-100) Calcium 9.4 mg/dL mg/dL (8.5-10.4) POC Troponin I 06/08/18 15:40 WBC RBC Hgb Hct MCV MCH MCHC RDW Plt Count MPV Neut % (Auto) Lymph % (Auto) Mower % (Auto) Eos % (Auto) Baso % (Auto) Nucleat RBC Rel Count Absolute Neuts (auto) Absolute Lymphs (auto) Absolute Monos (auto) Absolute Eos (auto) Absolute Basos (auto) Absolute Nucleated RBC Immature Gran % Immature Gran # PT INR APTT Sodium Potassium Chloride Carbon Dioxide Anion Gap BUN Creatinine Estimated GFR Glucose Calcium POC Troponin I 0.01 ng/mL ng/mL (0.00-0.08) Medications Given: Discontinued Medications Fentanyl (Sublimaze) 25 mcg IVP EDNOW ONE Stop: 06/08/18 15:47 Last Admin: 06/08/18 15:49 Dose: 25 mcg Sodium Chloride (Ns) 1,000 mls @ 0 mls/hr IV ONCE ONE PRN Reason: Wide Open Stop: 06/08/18 15:47 Last Admin: 06/08/18 15:49 Dose: 1,000 mls Point of Care Test Results: Chemistry 06/08/18 15:40 POC Troponin I 0.01 ng/mL ng/mL (0.00-0.08) Departure - Departure Disposition: [facility] Inpatient Acute Clinical Impression: Chest pain, History of coronary artery disease Condition: Fair Referrals: Patient,NotPresent [Primary Care Provider] - As per Instructions
[2018-06-08 15:56] LABS: PLATELET COUNT 276 10^3/uL (150-400)
[2018-06-08 16:01] LABS: INR 1.37 (0.83-1.16)
[2018-06-08] MEDS ORDERED: NITROGLYCERIN 0.4 MG BTL SL PRN (17:29)
--- NOTE | 2018-06-08 17:57 | PDGENHP ---
History and Physical History and Physical: CC: Unstable angina symptoms HISTORY: This patient with a long history of ischemic heart disease comes by ambulance to the ER with acute anginal symptoms. He is feeling well early today but this afternoon was driving in his car when he had sudden onset of fairly severe pressure in the central anterior chest radiating into left shoulder and associated with diaphoresis. He pulled over into a [employer] and went inside. He had ongoing symptoms so talk in sequence 3 sublingual nitroglycerin with initially partial relief but then no relief of his symptoms. He called 911 and paramedics came and brought him to the ER. Per the patient' s report he had a brief syncope in the ambulance. He awoke from that. It is reported to me by ER staff that the patient was hypotensive in the ambulance. Here in the ER on arrival is blood pressures were okay and pulse stable. He was given some fentanyl in the ER approximately 2 hr ago now.. He is awake and still complaining of some anterior central chest discomfort though this is less severe than when he initially had. He is not short of breath. He reports excellent compliance daily with his cardiac medicines which include aspirin, Eliquis, Ranexa, beta-prema, isosorbide, lisinopril and statin. His last hospital admission was a couple weeks ago at [facility] where he had some vague lightheaded symptoms. He says he was treated by changing his anticoagulant from Xarelto to Eliquis. He has felt better since then. He says he has had a bypass surgery about 8 years ago, and has had numerous stents placed at several different hospitals since then the most recent was at [facility] a little over a year ago. He does have an AICD placed and has a history of significantly decreased ejection fraction with left ventricular thrombus and 1 episode of pulseless V-tach. His AICD was placed for half years ago. He had 1 shock a month later and no shocks since then. He can occasionally feel pacing but has not felt any pacing for quite a while. He has no recent symptoms of heart failure. He does not recall when his last echocardiogram was, does not think it is in the last 6 months. 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 Wilcox in [place]. 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 I have reviewed the list and ordered appropriate medicines. PHYSICAL EXAMINATION: Vital Signs: So far vital signs here are still stable though last blood pressure lower at 103/50 Cleat Layer: Sinus rhythm Examination: General: alert, oriented, good mentation, mildly anxious Skin: warm, dry, good color, no rash; numerous tattoos HEENT: normal Neck: no mass or jvd Resps: relaxed Lungs: clear breath sounds Heart: regular, no murmur Abdomen: soft, nondistended, nontender, +BS, no mass Upper Extremities: normal Lower Extremities: no edema, warm No Bleeding or bruising Neurologic: normal speech/language, normal curriculum consultant, no focal weakness IV site: looks normal LABORATORY DATA: 1st troponin normal Slightly high white blood cell count, creatinine 1.5 with a known value of 1.2 here in September of this year, unknown what more recent values have been at the moment; last LDL in our system here was 128 in October RADIOLOGY STUDIES: I reviewed images of Chest x-ray showing enlarged heart and AICD in place with 2 leads, no acute heart failure 12 LEAD EKG: I reviewed ER tracing showing sinus rhythm with no acute ischemic changes, left axis deviation of the QRS ASSESSMENT: * unstable angina pectoralis * ongoing chest discomfort at this time * brief syncope on way here in ambulance, may have been due to hypotension from sublingual nitroglycerin doses, unclear to me at this point if 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 but would presumably have been * absence of signs of myocardial injury, heart failure, arrhythmia at this time * hyperlipidemia, last tested here in October but may been tested elsewhere since, 128 in October * LV thrombus with cardiomyopathy on chronic anticoagulation * history of pulses V-tach and CPR, AICD in place, no shocks in greater than 4 years PLANS: * Admit to inpatient status high risk patient with ongoing angina symptoms * Will need to watch blood pressures very closely while I try and achieve pain free status here inpatient already on multiple anti anginals * 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 Mann Fink to consult on the patient this evening I have reviewed the patient's case in detail with Dr. Mann Fink I have reviewed the patient's past medical records as part of this assessment, including previous hospital admission records here
[2018-06-08] MEDS: NITROGLYCERIN 2% 1 GM PACKET TP SCH (19:30)
[2018-06-08] MEDS: levETIRAcetam 250 MG TAB PO SCH (20:27)
[2018-06-08] MEDS: RANOLAZINE 500 MG TAB.ER PO SCH (20:27)
[2018-06-08] MEDS ORDERED: ATORVASTATIN CALCIUM 40 MG TAB PO SCH (21:00)
[2018-06-08] MEDS ORDERED: ISOSORBIDE MONONITRATE 30 MG TAB.SR PO SCH (21:00)
--- NOTE | 2018-06-08 22:11 | CPEKG ---
Test Reason : OPEN Blood Pressure : / mmHG Vent. Rate : 068 BPM Atrial Rate : 068 BPM P-R Int : 151 ms QRS Dur : 112 ms QT Int : 398 ms P-R-T Axes : 042 061 108 degrees QTc Int : 424 ms Sinus rhythm Abnormal inferior Q waves Nonspecific T abnormalities, lateral leads Confirmed by Nasra Earl ([id number]) on 06/08/2018 10:11:08 PM Referred By: Confirmed By:Nasra Earl
[2018-06-09] MEDS: NITROGLYCERIN 2% 1 GM PACKET TP SCH ×3 (00:23→14:37)
[2018-06-09] MEDS ORDERED: MULTIVITAMINS 1 EACH TAB PO SCH (09:00)
[2018-06-09] MEDS ORDERED: ASPIRIN EC 81 MG TAB PO SCH (09:00)
[2018-06-09] MEDS ORDERED: METOPROLOL SUCCINATE XR 50 MG TAB PO SCH (09:00)
[2018-06-09] MEDS ORDERED: LISINOPRIL 2.5 MG TAB PO SCH (09:00)
[2018-06-09] MEDS: levETIRAcetam 250 MG TAB PO SCH (09:24)
[2018-06-09] MEDS: RANOLAZINE 500 MG TAB.ER PO SCH (09:28)
--- NOTE | 2018-06-09 11:08 | PDMN ---
Medical Necessity Medical necessity: Pt meets IP criteria per MD & MCG M-40; est los >2 mn for eval/tx of unstable angina w/ongoing chest discomfort & brief syncope; requiring further workup/monitoring, Cardiology consult w/possible intervention & med management; hx CAD, CABG, pulseless V-tach w/AICD in place, ischemic cardiomyopathy w/thrombus on AC; per H&P & order 06/08/18
[2018-06-09] MEDS ORDERED: PERFLUTREN LIPID MICROSPHERES 1.1 MG/ML VIAL IV ONE (11:15)
[2018-06-09] MEDS ORDERED: REGADENOSON 0.4 MG/5 ML SYR IVP ONE (11:50)
--- NOTE | 2018-06-09 12:55 | ECHO ---
[email or web address] [address] [address] Main: [phone] Fax: Transthoracic Echocardiogram Name: RHEA VILLEGAS MR#: [id number] Study Date: 06/09/2018 Study Time: 10:49 AM Date of : 1970 Age: 47 year(s) Height: 182.9 cm (72 in.) Weight: 113.4 kg (250 lb.) BSA: 2.34 m2 Gender: Male Examination: Echo with Definity Indication: unstable angina, h/o cabg Image Quality: Technically Difficult Contrast: Requested by: Delbert Simons BP: 99 mmHg/51 mmHg Heart Rate: Rhythm: Indication: unstable angina, h/o cabg Procedure Staff Associate Merchant: Arcelia Leon [facility] Reading Physician: Alex Horn MD Requesting Provider: Conclusions: Mildly to moderately reduced systolic funtion. EF is 41 %. Basal to mid anteroseptal, basal to mid inferoseptal and basal inferior mariee are hypokinetic. There is a pacemaker lead noted in the right ventricle. Trivial mitral valve regurgitation. Trivial to mild tricuspid valve regurgitation. Pulmonary artery pressure is not obtained due to inadequate TR jet. Measurements: Chambers Valvular Assessment AV/MV Valvular Assessment TV/PV Normal Normal Normal Name Value Range Name Value Range Name Value Range Ao Cathie (MM): 3.0 cm (2.2 cm-3.7 AV Vmax: 1.07 m/s (1 m/s-1.7 PV Vmax: 0.94 m/s (0.6 m/s-0.9 cm) m/s) m/s) IVSd (2D): 1.1 cm (0.6 cm-1.1 AV maxP mmHg ( - ) PV PGmax: 4 mmHg ( - ) cm) LVOT Vmax: 0.90 m/s (0.7 m/s-1.1 LVDd (2D): 5.6 cm (4.2 cm-5.9 m/s) cm) MV E Vmax: 0.64 m/s ( - ) LVDs (2D): 4.8 cm (2.1 cm-4 MV A Vmax: 0.80 m/s ( - ) cm) MV E/A: 0.80 ( - ) LVPWd (2D): 1.0 cm (0.6 cm-1 cm) LVEF (BP): 41 % (>=55 %) Continued Measurements: Chambers Valvular Assessment AV/MV Name Value Name Value LADs: 4.2 cm MV DecTime: 165 m/s LADs Lon.4 cm MV E/E' Septal: 11.60 Patient: RHEA VILLEGAS Study Date: 06/09/2018 Page 1 of 2 10:49 AM LA Area: 18.7 cm2 MV E/E' Lateral: 8.30 LA Volume: 55 ml LA Volume Index: 23.5 ml/m2 Additional Vessels Name Value Ao Ascendin.2 cm Findings: Left Ventricle: Normal size left ventricle. Mild concentric LV hypertrophy. Mildly to moderately reduced systolic funtion. EF is 41 %. Basal to mid anteroseptal, basal to mid inferoseptal and basal inferior mariee are hypokinetic.Normal diastolic LV function. Right Ventricle: There is a pacemaker lead noted in the right ventricle. Right ventricle is not well visualized but appears within normal limits for function. Left Atrium: The left atrium is normal in size. Right Atrium: Grossly normal RA size. Mitral Valve: There is mild thickening of the mitral valve leaflets. Trivial mitral valve regurgitation. No mitral stenosis is present. Aortic Valve: Aortic valve is not visualized. There is no aortic valve regurgitation. No aortic valve stenosis is present. Tricuspid Valve: Tricuspid valve not well visualized. Trivial to mild tricuspid valve regurgitation. Pulmonary artery pressure is not obtained due to inadequate TR jet. Pulmonic Valve: Pulmonary valve not well visualized. Mild pulmonic valve regurgitation is noted. Aorta: Normal size aortic root measuring 3.0 cm. Normal size ascending aorta measuring 3.2 cm. Pericardium: No pericardial effusion. (No Signature Object) Patient: RHEA VILLEGAS Study Date: 06/09/2018 Page 2 of 2 10:49 AM [id number]
--- NOTE | 2018-06-09 12:59 | CPR ---
DATE OF PROCEDURE: 06/09/2018 PROCEDURE: Lexiscan nuclear stress test. REASON FOR TEST: Chest pain, known coronary artery disease. Initial blood pressure was 132/88, oxygen saturation 90%, heart rate 77. Resting EKG shows a sinus rhythm with no arrhythmias. Heart rate is 77. He has a 3/10 discomfort in his chest. STRESS PORTION: Lexiscan nuclear stress test. Lexiscan was injected rapidly, followed by saline flush. Cardiolite was then injected, followed by s shantel flush. Blood pressure 110/74, oxygen saturation 90%, heart rate 89. He did have 9/10 chest di scomfort after the injection. There were no EKG changes. RECOVERY: He did spontaneously recover. Caffeine was given. Resting blood pressure 124/72, resting heart rate 82, oxygen saturation 90%. At this time, he currently is stable for nuclear imaging. /[id number]/MODL
[2018-06-09] MEDS ORDERED: ACETAMINOPHEN 325 MG TAB PO PRN (14:19)
--- NOTE | 2018-06-09 15:04 | PDCARCONS ---
Cardiology Consult Reason for Consult: Chest pain, known coronary artery disease. Chief Complaint: Chest pressure. Requesting Physician: Dr. Delbert Simons. History of Present Illness: 47-year-old male with known coronary artery disease. He underwent coronary artery bypass grafting x2 vessels about 8 years ago which was performed at [facility]. Since that time, he has had multiple hospitalizations at various hospitals throughout the [facility] and has had, on 3 or 4 occasions, PCI and stenting. As part of my history and physical I spoke to his primary leather goods maker Dr. 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 Additionally, the patient has a history of previous cardiac arrest for 5 years ago currently with a [employer] ICD in place. He has a chronic ischemic cardiomyopathy with an ejection fraction of about 40% without ongoing issues of heart failure. He is admitted to the hospital with recurrent chest discomfort. 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 After dropping off a client yesterday afternoon he began to experience chest pressure. This was described as a retrosternal chest heaviness with a component of left shoulder pain. This was his typical chest pain syndrome that he experiences between 1 and 3 times a month. He stopped at a local [employer], had a glass of water and subsequently took 3 sublingual nitroglycerines. After this he became lightheaded and called EMS. He was being transferred to this hospital where he may have had an episode of syncope. He does not recall losing consciousness. Since being here he has had low level 1 to 2/10 chest discomfort which has been present since his admission. The pain is not respiratory phasic or positional. It is not described as ripping or tearing. He has appeared comfortable throughout this hospitalization. Sequential cardiac enzymes have been normal. His ECG on arrival was the same as the previous ECG available for review from September. Subsequently he has developed very minor lateral T-wave inversions. He denies a history of fever, chills and sweats. He has had no recent cough or sputum production. He gives no history of hemoptysis. He does note that he has , in addition to intermittent chest pressure, fairly chronic chest wall tenderness which has been present since his coronary artery bypass graft procedure. History Information - Allergies/Home Medication List Allergies/Adverse Reactions: No Known Allergies Allergy (Verified 06/08/18 16:35) Home Medications: Aspirin EC [Aspirin EC 81 mg (*)] 81 mg PO DAILY 10/28/17 [Last Taken 06/08/18 12:00] Atorvastatin Calcium [Lipitor 80 mg] 80 mg PO HS 10/28/17 [Last Taken 06/07/18] Isosorbide Mononitrate [Isosorbide Mononitrate ER] 60 mg PO HS 10/28/17 [Last Taken 06/07/18] LEVETIRACETAM [Keppra 750 mg] 750 mg PO BID 10/28/17 [Last Taken 06/08/18 12:00] Lisinopril [Zestril 2.5 mg (*)] 2.5 mg PO DAILY 10/28/17 [Last Taken 06/08/18 12 :00] Metoprolol Succinate Xr [Toprol Xl 50 mg (*)] 50 mg PO DAILY 10/28/17 [Last Taken 06/08/18 12:00] Multivitamins [Multivitamin (*)] 1 each PO DAILY 10/28/17 [Last Taken 06/08/18 12:00] Ranolazine [Ranexa] 1,000 mg PO BID 10/28/17 [Last Taken 06/08/18 12:00] Apixaban [Eliquis] 5 mg PO BID 06/08/18 [Last Taken 06/08/18 12:00] Nitroglycerin [Nitrostat 0.4 mg (*)] 0.4 mg SL Q5M PRN MDD 1.2mg 06/08/18 [Last Taken 06/08/18] I have personally reviewed and updated: family history, medical history, social history, surgical history Past Medical History: Coronary artery disease as described above, chronic ischemic cardiomyopathy without heart failure, history of cardiac arrest status post ICD implantation, hyperlipidemia, hypertension, history of seizure disorder. - Surgical History Reports: coronary bypass surgery Additional surgical history: ICD implantation - Family History Positive for: non-pertinent - Social History Smoking Status: Former smoker Alcohol Use: None Drug Use: None Physical Exam Physical Exam: Temp Pulse Resp BP Pulse Ox 36.7 C 83 18 95/52 L 94 06/09/18 07:32 06/09/18 07:32 06/09/18 07:32 06/09/18 07:32 06/09/18 07:32 Constitutional: no apparent distress, appears nourished, not in pain Eyes: PERRL, anicteric sclera, EOMI Ears, Nose, Mouth, Throat: moist mucous membranes, hearing normal, ears appear normal, no oral mucosal ulcers Cardiovascular: regular rate and rhythym, no murmur, rub, or gallop, other ( Midline sternotomy incision well healed, ICD in place in the left infraclavicular fossa), No edema Peripheral Pulses: 2+: carotid (R), carotid (L) Respiratory: no respiratory distress, no rales or rhonchi, clear to auscultation Gastrointestinal: normoactive bowel sounds, soft, non-tender abdomen, no palpable masses Genitourinary: no bladder fullness, no bladder tenderness Skin: warm, normal color, no rashes or abrasions, no fluctuance, no induration, No mottled Musculoskeletal: full muscle strength, no muscle tenderness, normal joint ROM, no joint effusions Psychiatric: interacting appropriately, not anxious, not encephalopathic, thought process linear Lymph, Heme, Immunologic: no cervical LAD, no supraclavicular LAD Lab and Imaging 06/08/18 15:49 06/08/18 15:49 WBC 10.05 10^3/uL (3.80-9.50) H 06/08/18 15:49 RBC 5.75 10^6/uL (4.40-6.38) 06/08/18 15:49 Hgb 16.9 g/dL (13.7-17.5) 06/08/18 15:49 Hct 50.4 % (40.0-51.0) 06/08/18 15:49 MCV 87.7 fL (81.5-99.8) 06/08/18 15:49 MCH 29.4 pg (27.9-34.1) 06/08/18 15:49 MCHC 33.5 g/dL (32.4-36.7) 06/08/18 15:49 RDW 14.0 % (11.5-15.2) 06/08/18 15:49 Plt Count 276 10^3/uL (150-400) 06/08/18 15:49 MPV 9.9 fL (8.7-11.7) 06/08/18 15:49 Neut % (Auto) 73.1 % (39.3-74.2) 06/08/18 15:49 Lymph % (Auto) 18.0 % (15.0-45.0) 06/08/18 15:49 [place] % (Auto) 6.8 % (4.5-13.0) 06/08/18 15:49 Eos % (Auto) 1.3 % (0.6-7.6) 06/08/18 15:49 Baso % (Auto) 0.4 % (0.3-1.7) 06/08/18 15:49 Nucleat RBC Rel Count 0.0 % (0.0-0.2) 06/08/18 15:49 Absolute Neuts (auto) 7.35 10^3/uL (1.70-6.50) H 06/08/18 15:49 Absolute Lymphs (auto) 1.81 10^3/uL (1.00-3.00) 06/08/18 15:49 Absolute Monos (auto) 0.68 10^3/uL (0.30-0.80) 06/08/18 15:49 Absolute Eos (auto) 0.13 10^3/uL (0.03-0.40) 06/08/18 15:49 Absolute Basos (auto) 0.04 10^3/uL (0.02-0.10) 06/08/18 15:49 Absolute Nucleated RBC 0.00 10^3/uL (0-0.01) 06/08/18 15:49 Immature Gran % 0.4 % (0.0-1.1) 06/08/18 15:49 Immature Gran # 0.04 10^3/uL (0.00-0.10) 06/08/18 15:49 PT 17.0 SEC (12.0-15.0) H 06/08/18 15:49 INR 1.37 (0.83-1.16) H 06/08/18 15:49 APTT 33.5 SEC (23.0-38.0) 06/08/18 15:49 Sodium 141 mEq/L (135-145) 06/08/18 15:49 Potassium 4.4 mEq/L (3.3-5.0) 06/08/18 15:49 Chloride 103 mEq/L (97-110) 06/08/18 15:49 Carbon Dioxide 30 mEq/l (22-31) 06/08/18 15:49 Anion Gap 8 mEq/L (8-16) 06/08/18 15:49 BUN 20 mg/dL (7-23) 06/08/18 15:49 Creatinine 1.5 mg/dL (0.7-1.3) H 06/08/18 15:49 Estimated GFR 50 06/08/18 15:49 Glucose 117 mg/dL (70-100) H 06/08/18 15:49 Calcium 9.4 mg/dL (8.5-10.4) 06/08/18 15:49 POC Troponin I 0.01 ng/mL (0.00-0.08) 06/08/18 15:40 Troponin I < 0.012 ng/mL (0.000-0.034) 06/09/18 00:15 A/P Assessment: 47-year-old male with extensive cardiovascular history as detailed previously. He presents to the hospital now with acute resting chest discomfort in the absence of objective findings that suggest ischemia. In reviewing his cardiovascular history and discussing the case with his primary leather goods maker it sounds as if he has fairly chronic intermittent chest discomfort and has been seen at multiple hospitalizations [place] and [place] with multiple previous cardiac catheterizations some of which have led to PCI while others have demonstrated stable underlying coronary anatomy. He was in this hospital this last September for an episode of chest discomfort and had a stress myocardial perfusion imaging study at that time indicating a previous inferior infarct without underlying ischemia. Additionally, he had an episode of syncope after taking 3 sublingual nitroglycerines. I think this is likely hemodynamically mediated as result of he taking sublingual nitroglycerin. Obviously, in this patient, high index of suspicion is be maintained for recurrent underlying ischemia however, his chest pain syndrome is highly atypical and as of yet he has not manifested any objective signs of ischemia/ infarction. Therefore, I do not think that he requires an invasive upfront strategy. I think that we can proceed with stress myocardial perfusion imaging for risk stratification and as long as that study is low risk he can be discharged from the hospital with close follow-up by his primary leather goods maker. This was discussed with him today and he is in agreement. Review of Systems Review of Systems: - Review of Systems Constitutional: see HPI EENTM: no symptoms reported Respiratory: see HPI Cardiac: see HPI Gastrointestinal/Abdominal: no symptoms reported Genitourinary: no symptoms Musculoskelatal: no symptoms Skin: no symptoms Neurological: no symptoms Hematologic/Lymphatic: no symptoms reported Immunologic/allergic: no symptoms reported All Other Systems: Reviewed and Negative
[2018-06-09 15:20] VITALS: BP 126/79
--- NOTE | 2018-06-09 16:15 | ASDISCHSUM ---
Discharge Information Plan Status:Home with No Needs Medically Cleared to Leave:06/09/2018 Discharge Date:06/09/2018 CM D/C Disposition:Home, Routine, Self-Care ADT D/C Disposition:Home, Routine, Self-Care Projected Discharge Date:06/09/2018 Transportation at D/C:Family Discharge Delay Reason: Follow-Up Date:06/09/2018 Discharge Slot: Final Diagnosis: Placement Information Patient Contact Information Contact Name:REAGAN Relationship:Daughter Address: Work Phone: City: [facility] Phone: State/Zip Code: Email: Financial Information Financial Class:Medicaid Primary Plan Desc:[employer] [place] Primary Plan Number:[id number] Secondary Plan Desc: Secondary Plan Number: Assessment Information LACE LACE Length of stay for Answers: Less than 1 day current admission Acuity / Level of Answers: No Care: Did the patient have an inpatient admission? Comorbidities - select Answers: Coronary Artery Disease all that apply Previous myocardial infarction Other Notes: HTN; HLD # of Emergency department Answers: 1-2 visits in the last 6 months Score: 5 Date Signed: 06/09/2018 04:15 PM Electronically Signed By:Kristen Pate RN Intervention Information Intervention Type:*Incorrect Registration Date of Service:06/08/2018 08:47 AM Patient Type:Observation Staff Member:MIS Howard Courtney Hours: Discipline: Severity: Comment: Intervention Type:No Admission Order Date of Service:06/08/2018 08:47 AM Patient Type:Observation Staff Member:MIS Howard Courtney Hours: Discipline: Severity: Comment:
--- NOTE | 2018-06-09 19:21 | GDS ---
DISCHARGE DIAGNOSES: 1. Chest pain with negative evaluation, suspect musculoskeletal. 2. Coronary artery disease, status post previous bypass surgery and stents. 3. History of ventricular tachycardia with automated implantable cardioverter-defibrillator. 4. Ischemic cardiomyopathy, chronic systolic congestive heart failure, ejection fraction 41%. 5. History of left ventricular thrombus, on chronic anticoagulation. 6. Seizure disorder. 7. Syncope due to sublingual nitroglycerin administration. HISTORY: The patient is a 47-year-old male with extensive cardiac history as detailed above. He pre sents to the hospital with recurrence of chest pain. He was seen in consultation with Dr. Fink. Dr Serena Fink spoke with his usual corrective therapy aide teacher in [place]. The decision was made to pursue stress testin g. This was performed today and was negative for reversible ischemia, and [facility]. Echocardiogram performed during this hospitalization showed an ejection fraction of 41%. He is otherwise well compensated. DISCHARGE MEDICATIONS: Please see computerized record for full detailed list. There are no new medi cations given at time of hospital discharge. ADDITIONAL DISCHARGE INSTRUCTIONS: Follow up with your usual corrective therapy aide teacher per regular schedule. Patient was seen and examined by me on the day of discharge. /[id number]/MODL
--- NOTE | 2018-06-11 08:37 | CPEKG ---
Test Reason : OPEN Blood Pressure : / mmHG Vent. Rate : 087 BPM Atrial Rate : 087 BPM P-R Int : 155 ms QRS Dur : 112 ms QT Int : 387 ms P-R-T Axes : 045 067 250 degrees QTc Int : 466 ms Sinus rhythm Ventricular premature complex Inferior infarct, age indeterminate Lateral leads are also involved Confirmed by Terrance De La O ([id number]) on 06/11/2018 8:36:55 AM Referred By: Confirmed By:Terrance De La O
== END 2018-06-09 16:32 | disposition home or self-care (01) | DRG 198 ==
LOC: EDUNIT# → F2W 17:21 → OBSVTOIN 06-09 08:46
PROVIDERS: ADMIT Internal Medicine; ATTEND Internal Medicine
DX: I25.110 Atherosclerotic heart disease of native coronary artery with unstable angina pectoris (principal); I50.22 Chronic systolic (congestive) heart failure; R07.89 Other chest pain; Z95.1 Presence of aortocoronary bypass graft; Z95.5 Presence of coronary angioplasty implant and graft; Z95.810 Presence of automatic (implantable) cardiac defibrillator; I25.5 Ischemic cardiomyopathy; G40.909 Epilepsy, unspecified, not intractable, without status epilepticus; E78.5 Hyperlipidemia, unspecified; Z86.718 Personal history of other venous thrombosis and embolism; Z79.01 Long term (current) use of anticoagulants; Z23 Encounter for immunization
CPT/HCPCS: 84484-PO; 96374; A9500; G0008; J2270; J2785; J3010; Q9957